=== PATIENT | female | born 1940 | race Two or more races ===

== ENCOUNTER 2021-02-16 02:48 | Inpatient (IN) | payer BC, MEDICARE ==
[~2021-02-16] VITALS: Ht 142.2 cm; Wt 69.2 kg
[2021-02-16] MEDS ORDERED: ONDANSETRON HCL 4 MG/2 ML VIAL ONE (07:36)
[2021-02-16] MEDS ORDERED: ONDANSETRON HCL 4 MG/2 ML VIAL IV ONE ×2 (07:45→12:15)
[2021-02-16] MEDS ORDERED: PANTOPRAZOLE 40mg/50ML NS AE 50 ML IV ONE (07:45)
[2021-02-16] MEDS ORDERED: SODIUM CHLORIDE 0.9% 1,000 ML IV ONE (07:45)
[2021-02-16 07:46] LABS: Basophils # (auto) 0 10 ^3/uL (0-0.2); Basophils % (auto) 0.3 % (0.0-2.0); Eosinophils # (auto) 0 10 ^3/uL (0-0.8); Eosinophils % (auto) 0.1 % (0.0-7.0); Lymphocytes # (auto) 1.3 10 ^3/uL (0.4-5.4); Monocytes # (auto) 0.6 10 ^3/uL (0-1.3); Nucleated Red Blood Cells % 0.1 %
[2021-02-16 07:48] LABS: Hematocrit 14.5 % (36.0-46.0); Lymphocytes % (auto) 16.8 % (10.0-50.0); Mean Corpuscular Hemoglobin 23.1 pg (28.0-32.0); Mean Corpuscular Hgb Conc. 31.9 g/dL (32.0-36.0); Mean Corpuscular Volume 72.4 fL (80.0-100.0); Monocytes % (auto) 7.7 % (0.0-12.0); Neutrophils # (auto) 5.8 10 ^3/uL (1.6-8.6); Neutrophils % (auto) 75.1 % (37.0-80.0); Red Blood Cells 2.01 10^6/uL (4.0-5.20); Red Cell Distribution Width 19.7 % (11.8-14.3); White Blood Cell 7.7 10^3/uL (4.4-10.8)
[2021-02-16 07:55] LABS: Hemoglobin 4.6 g/dL (12.2-16.2)
[2021-02-16 08:02] LABS: Albumin 1.7 g/dL (3.4-5.0); BUN/Creatinine Ratio 38.2; Calcium 6.9 mg/dL (8.5-10.1); Potassium 3.7 mmol/L (3.5-5.1)
[2021-02-16 08:05] LABS: Lactic Acid w/Reflex 7.3 mmol/L (0.4-2.0)
[2021-02-16 08:07] LABS: Bilirubin, Total 0.6 mg/dL (0.2-1.0); Total Protein 5.2 g/dL (6.4-8.2)
[2021-02-16 10:25] VITALS: BP 98/38
[2021-02-16 10:40] VITALS: BP 109/44
[2021-02-16 12:30] VITALS: BP 106/50
[2021-02-16 12:53] VITALS: BP 112/45
[2021-02-16] MEDS ORDERED: NITROGLYCERIN 0.4 MG SL TAB SL PRN (13:00)
[2021-02-16] MEDS ORDERED: MORPHINE SULFATE INJECTION 2 MG/ML SYRG IV PRN ×3 (13:00→13:45)
[2021-02-16 13:08] VITALS: BP 129/51
[2021-02-16] MEDS ORDERED: OCTREOTIDE ACETATE 100 MCG in SODIUM CHL 0.9% 50 ML IV ONE (13:15)
[2021-02-16] MEDS: OCTREOTIDE ACETATE 500 MCG in SODIUM CHL 0.9% 99 ML IV SCH ×2 (13:44→22:38)
[2021-02-16] MEDS ORDERED: ONDANSETRON HCL 4 MG/2 ML VIAL IV PRN (13:45)
[2021-02-16] MEDS ORDERED: DEXTROSE (50%) 50ML SYRG IV PRN (13:45)
[2021-02-16] MEDS ORDERED: levoFLOXacin 500MG 100 ML IV ONE (13:45)
[2021-02-16 14:12] LABS: Amylase 53 U/L (25-115); Lipase 177 U/L (73-393)
[2021-02-16] MEDS: SODIUM CHLORIDE 0.9% 1,000 ML IV SCH ×2 (14:17→22:30)
[2021-02-16] MEDS: metroNIDAZOLE 500MG/100ML 100 ML IV SCH ×2 (14:17→22:30)
[2021-02-16 14:30] VITALS: BP 113/45
[2021-02-16 15:57] LABS: INR 1.87 (0.9-1.15); Partial Thromboplastin Time 35.7 sec (23.6-33.0)
[2021-02-16 16:42] LABS: Hematocrit 22.5 % (36.0-46.0); Hemoglobin 7.3 g/dL (12.2-16.2)
[2021-02-16 16:46] LABS: Urine Bacteria MANY /hpf (None Seen); Urine Blood Negative /uL (Negative); Urine Mucus FEW (None Seen); Urine Specific Gravity 1.014 (1.001-1.035); Urine WBC 5 /hpf (0 - 5)
[2021-02-16] MEDS ORDERED: phytonadione 10 MG in SODIUM CHL 0.9% 50 ML IV ONE (18:00)
[2021-02-16] MEDS: ACCU-CHEK COMFORT CURVE STRIP VI SCH (18:40)
[2021-02-16] MEDS: InsuLIN REG 1unit/0.01ml Soln (100units/ml) SC SCH (18:41)
[2021-02-16] MEDS: PANTOPRAZOLE 40 MG/10 ML VIAL INJ IV SCH (22:29)
[2021-02-16] MEDS: LACTULOSE 20Gm/30ML SOLN PO SCH (22:29)
[2021-02-16] MEDS ORDERED: OCTREOTIDE ACETATE 500 MCG/ML VL ONE (22:34)
[2021-02-16] MEDS: LORazepam 2MG/ML-1ML VIAL IV PRN (22:57)
[2021-02-17] VITALS (22 sets, daily range): BP systolic 11–149; BP diastolic 39–71
[2021-02-17] MEDS: InsuLIN REG 1unit/0.01ml Soln (100units/ml) SC SCH ×5 (00:34→23:44)
[2021-02-17] MEDS: ACCU-CHEK COMFORT CURVE STRIP VI SCH ×5 (00:34→23:43)
[2021-02-17 01:15] LABS: Hematocrit 18.3 % (36.0-46.0)
[2021-02-17 01:18] LABS: Hemoglobin 6.1 g/dL (12.2-16.2)
[2021-02-17] MEDS: LORazepam 2MG/ML-1ML VIAL IV PRN (05:12)
[2021-02-17] MEDS: SODIUM CHLORIDE 0.9% 1,000 ML IV SCH (05:46)
[2021-02-17] MEDS: LACTULOSE 20Gm/30ML SOLN PO SCH (06:04)
[2021-02-17] MEDS: metroNIDAZOLE 500MG/100ML 100 ML IV SCH ×3 (06:04→22:00)
[2021-02-17 07:11] LABS: Basophils # (auto) 0 10 ^3/uL (0-0.2); Basophils % (auto) 0.3 % (0.0-2.0); Eosinophils # (auto) 0 10 ^3/uL (0-0.8); Monocytes # (auto) 1.3 10 ^3/uL (0-1.3); Nucleated Red Blood Cells % 0.1 %
[2021-02-17 07:14] LABS: Hematocrit 15.7 % (36.0-46.0); Lymphocytes # (auto) 1.2 10 ^3/uL (0.4-5.4); Lymphocytes % (auto) 9.2 % (10.0-50.0); Mean Corpuscular Hemoglobin 27.8 pg (28.0-32.0); Mean Corpuscular Hgb Conc. 33.9 g/dL (32.0-36.0); Mean Corpuscular Volume 82.1 fL (80.0-100.0); Monocytes % (auto) 10.3 % (0.0-12.0); Neutrophils # (auto) 10.3 10 ^3/uL (1.6-8.6); Neutrophils % (auto) 80.2 % (37.0-80.0); Red Blood Cells 1.91 10^6/uL (4.0-5.20); White Blood Cell 12.9 10^3/uL (4.4-10.8)
[2021-02-17 07:25] LABS: Albumin 1.6 g/dL (3.4-5.0); Calcium 6.5 mg/dL (8.5-10.1)
[2021-02-17 07:28] LABS: BUN/Creatinine Ratio 52.9; Bilirubin, Total 0.8 mg/dL (0.2-1.0); Total Protein 4.6 g/dL (6.4-8.2)
[2021-02-17 07:31] LABS: Red Cell Distribution Width 20.3 % (11.8-14.3)
[2021-02-17 07:33] LABS: Hemoglobin 5.3 g/dL (12.2-16.2)
[2021-02-17] MEDS: OCTREOTIDE ACETATE 500 MCG in SODIUM CHL 0.9% 99 ML IV SCH (08:56)
[2021-02-17] MEDS: PANTOPRAZOLE 40 MG/10 ML VIAL INJ IV SCH ×2 (09:06→22:46)
[2021-02-17] MEDS ORDERED: levoFLOXacin 500MG 100 ML IV SCH (10:00)
[2021-02-17] MEDS ORDERED: levoFLOXacin 250MG 50 ML IV SCH (10:00)
[2021-02-17] MEDS ORDERED: SODIUM CHLORIDE LOCK 10 ML ONE (13:27)
[2021-02-17] MEDS ORDERED: LIDOCAINE VISCOUS 2% 15ML UD ONE (13:27)
[2021-02-17] MEDS ORDERED: diphenhdrAMINE HCL 50 MG/1 ML VL ONE (13:28)
[2021-02-17 14:40] LABS: Hematocrit 24.3 % (36.0-46.0); Hemoglobin 7.9 g/dL (12.2-16.2)
[2021-02-17 15:42] LABS: Alcohol, Urine < 3.0 mg/dL (0-10); Amphetamine Screen, Urine NEGATIVE (NEGATIVE); Barbiturate Scree,Urine NEGATIVE (NEGATIVE); Benzodiazephine Screen, Urine NEGATIVE (NEGATIVE); Cannabinoid Screen, Urine NEGATIVE (NEGATIVE); Cocaine Screen, Urine NEGATIVE (NEGATIVE); Opiate Scree,Urine NEGATIVE (NEGATIVE); Phencyclidine Screen, Urine NEGATIVE (NEGATIVE)
[2021-02-17 16:00] LABS: INR 1.46 (0.9-1.15)
[2021-02-17] MEDS: fentaNYL CITRATE 100 MCG/2 ML VL ONE ×2 (17:17→17:25)
[2021-02-17] MEDS: MIDAZOLAM HCL 5 MG/ML-1ML VIAL ONE ×2 (17:17→17:25)
[2021-02-17] MEDS: SOD CHL 0.45% 1,000 ML IV SCH (18:00)
[2021-02-17 18:53] LABS: Hemoglobin 8.4 g/dL (12.2-16.2)
[2021-02-17 19:19] LABS: Hematocrit 24.4 % (36.0-46.0)
[2021-02-17] MEDS: LACTULOSE 10g/15ml SOLN PR SCH (20:20)
[2021-02-18] MEDS: LACTULOSE 10g/15ml SOLN PR SCH ×4 (00:40→18:35)
[2021-02-18] MEDS: OCTREOTIDE ACETATE 500 MCG in SODIUM CHL 0.9% 99 ML IV SCH ×3 (01:04→16:18)
[2021-02-18 01:25] LABS: Hematocrit 26.4 % (36.0-46.0)
[2021-02-18] MEDS: metroNIDAZOLE 500MG/100ML 100 ML IV SCH (05:19)
[2021-02-18] MEDS: ACCU-CHEK COMFORT CURVE STRIP VI SCH ×3 (06:00→18:35)
[2021-02-18] MEDS: InsuLIN REG 1unit/0.01ml Soln (100units/ml) SC SCH ×3 (06:00→18:37)
[2021-02-18] MEDS: SOD CHL 0.45% 1,000 ML IV SCH (08:00)
[2021-02-18] MEDS ORDERED: FUROSEMIDE 40 MG/4 ML VIAL IV ONE (09:30)
[2021-02-18 10:40] VITALS: BP 116/55
[2021-02-18 12:24] LABS: Basophils # (auto) 0 10 ^3/uL (0-0.2); Basophils % (auto) 0.2 % (0.0-2.0); Eosinophils # (auto) 0.1 10 ^3/uL (0-0.8); Eosinophils % (auto) 1.2 % (0.0-7.0); Hemoglobin 8.6 g/dL (12.2-16.2); Lymphocytes # (auto) 0.7 10 ^3/uL (0.4-5.4); Lymphocytes % (auto) 10.8 % (10.0-50.0); Mean Corpuscular Hemoglobin 29.8 pg (28.0-32.0); Mean Corpuscular Hgb Conc. 34.2 g/dL (32.0-36.0); Monocytes # (auto) 0.5 10 ^3/uL (0-1.3); Monocytes % (auto) 7.7 % (0.0-12.0); Neutrophils # (auto) 5.5 10 ^3/uL (1.6-8.6); Neutrophils % (auto) 80.1 % (37.0-80.0); Nucleated Red Blood Cells % 0.3 %; Red Blood Cells 2.88 10^6/uL (4.0-5.20); Red Cell Distribution Width 18.6 % (11.8-14.3); White Blood Cell 6.9 10^3/uL (4.4-10.8)
[2021-02-18 12:31] LABS: Albumin 1.9 g/dL (3.4-5.0); Calcium 7.1 mg/dL (8.5-10.1); Potassium 3.4 mmol/L (3.5-5.1)
[2021-02-18 12:35] LABS: BUN/Creatinine Ratio 56.6; Total Protein 5.2 g/dL (6.4-8.2)
[2021-02-18 13:00] VITALS: BP 119/50
[2021-02-18] MEDS: PANTOPRAZOLE 40 MG/10 ML VIAL INJ IV SCH ×2 (13:34→22:31)
[2021-02-18] MEDS: POTASSIUM CHLORIDE 20 MEQ in D5W 5% 1,000 ML IV SCH (16:18)
[2021-02-18 17:00] VITALS: BP 116/55
[2021-02-18 22:00] VITALS: BP 124/57
[2021-02-19] MEDS: LACTULOSE 10g/15ml SOLN PR SCH ×2 (00:58→07:36)
[2021-02-19] MEDS: OCTREOTIDE ACETATE 500 MCG in SODIUM CHL 0.9% 99 ML IV SCH (02:30)
[2021-02-19] MEDS ORDERED: GABA-339 PO (02:52)
[2021-02-19] MEDS ORDERED: PRE1T PO (02:52)
[2021-02-19] MEDS ORDERED: BACL10TA PO (02:52)
[2021-02-19] MEDS ORDERED: HYDR200T36 PO (02:52)
[2021-02-19] MEDS ORDERED: FOLI1TAB6 PO (02:52)
[2021-02-19] MEDS ORDERED: METH2.5T PO (02:52)
[2021-02-19] MEDS: POTASSIUM CHLORIDE 20 MEQ in D5W 5% 1,000 ML IV SCH (03:13)
[2021-02-19 05:00] VITALS: BP 107/54
[2021-02-19] MEDS: ACCU-CHEK COMFORT CURVE STRIP VI SCH ×5 (06:00→23:46)
[2021-02-19] MEDS: InsuLIN REG 1unit/0.01ml Soln (100units/ml) SC SCH ×5 (06:00→23:48)
[2021-02-19 06:58] LABS: Basophils # (auto) 0.1 10 ^3/uL (0-0.2); Basophils % (auto) 1.2 % (0.0-2.0); Eosinophils # (auto) 0.3 10 ^3/uL (0-0.8); Eosinophils % (auto) 4.9 % (0.0-7.0); Hematocrit 25.3 % (36.0-46.0); Hemoglobin 8.6 g/dL (12.2-16.2); Lymphocytes # (auto) 0.7 10 ^3/uL (0.4-5.4); Lymphocytes % (auto) 12.9 % (10.0-50.0); Mean Corpuscular Hemoglobin 29.2 pg (28.0-32.0); Mean Corpuscular Hgb Conc. 34.1 g/dL (32.0-36.0); Mean Corpuscular Volume 85.7 fL (80.0-100.0); Monocytes # (auto) 0.5 10 ^3/uL (0-1.3); Monocytes % (auto) 8.5 % (0.0-12.0); Neutrophils # (auto) 3.9 10 ^3/uL (1.6-8.6); Neutrophils % (auto) 72.5 % (37.0-80.0); Nucleated Red Blood Cells % 0.2 %; Red Blood Cells 2.95 10^6/uL (4.0-5.20); Red Cell Distribution Width 18.7 % (11.8-14.3); White Blood Cell 5.4 10^3/uL (4.4-10.8)
[2021-02-19 07:25] LABS: Potassium 3.3 mmol/L (3.5-5.1)
[2021-02-19 07:39] LABS: Calcium 6.9 mg/dL (8.5-10.1)
[2021-02-19] MEDS: cefTRIAXone 1GM/50ML D5W 50 ML IV SCH (08:53)
[2021-02-19 09:00] VITALS: BP 124/52
[2021-02-19] MEDS ORDERED: POTASSIUM EFFERVESENT TAB 25 MEQ PO ONE (09:45)
[2021-02-19] MEDS ORDERED: POTASSIUM CHLORIDE 20 MEQ in D5W 5% 1,000 ML IV SCH (09:45)
[2021-02-19] MEDS: PANTOPRAZOLE 40 MG/10 ML VIAL INJ IV SCH ×2 (10:14→21:21)
[2021-02-19] MEDS: LACTULOSE 20Gm/30ML SOLN PO SCH ×2 (10:48→21:21)
[2021-02-19] MEDS ORDERED: GADOTERATE MEG 7.5 MMOL/15ml INJ (0.5MMOL/ml) IV ONE (12:02)
[2021-02-19 13:00] VITALS: BP 132/60
[2021-02-19 17:00] VITALS: BP 120/60
[2021-02-19] MEDS: Glucerna Carbsteady SHAKE Vanilla 8oz PO SCH (18:41)
[2021-02-19 22:00] VITALS: BP 118/58
[2021-02-20 05:00] VITALS: BP 118/57
[2021-02-20] MEDS: InsuLIN REG 1unit/0.01ml Soln (100units/ml) SC SCH ×3 (05:32→17:56)
[2021-02-20] MEDS: ACCU-CHEK COMFORT CURVE STRIP VI SCH ×3 (05:33→17:54)
[2021-02-20 06:29] LABS: Basophils # (auto) 0 10 ^3/uL (0-0.2); Basophils % (auto) 0.8 % (0.0-2.0); Eosinophils # (auto) 0.4 10 ^3/uL (0-0.8); Eosinophils % (auto) 8.2 % (0.0-7.0); Hematocrit 25.7 % (36.0-46.0); Hemoglobin 8.7 g/dL (12.2-16.2); Lymphocytes # (auto) 0.8 10 ^3/uL (0.4-5.4); Lymphocytes % (auto) 14.7 % (10.0-50.0); Mean Corpuscular Hemoglobin 29.2 pg (28.0-32.0); Mean Corpuscular Hgb Conc. 33.9 g/dL (32.0-36.0); Mean Corpuscular Volume 86.2 fL (80.0-100.0); Monocytes # (auto) 0.5 10 ^3/uL (0-1.3); Monocytes % (auto) 9.4 % (0.0-12.0); Neutrophils # (auto) 3.6 10 ^3/uL (1.6-8.6); Neutrophils % (auto) 66.9 % (37.0-80.0); Nucleated Red Blood Cells % 0.3 %; Red Blood Cells 2.98 10^6/uL (4.0-5.20); Red Cell Distribution Width 19.2 % (11.8-14.3); White Blood Cell 5.4 10^3/uL (4.4-10.8)
[2021-02-20 07:01] LABS: Potassium 3.4 mmol/L (3.5-5.1)
[2021-02-20 07:07] LABS: BUN/Creatinine Ratio 41.7; Calcium 7.3 mg/dL (8.5-10.1)
[2021-02-20 09:00] VITALS: BP 119/56
[2021-02-20] MEDS: Glucerna Carbsteady SHAKE Vanilla 8oz PO SCH ×2 (09:14→17:54)
[2021-02-20] MEDS: cefTRIAXone 1GM/50ML D5W 50 ML IV SCH (09:14)
[2021-02-20] MEDS: PANTOPRAZOLE 40 MG/10 ML VIAL INJ IV SCH (10:30)
[2021-02-20] MEDS: LACTULOSE 20Gm/30ML SOLN PO SCH ×2 (10:30→21:44)
[2021-02-20] MEDS: SPIRONOLACTONE 25 MG TAB PO SCH (10:30)
[2021-02-20] MEDS ORDERED: POTASSIUM CHL 10 Meq TABLET PO ONE (12:30)
[2021-02-20 13:00] VITALS: BP 106/72
[2021-02-20 16:39] VITALS: BP 140/48
[2021-02-20] MEDS: PANTOPRAZOLE 40 MG TAB PO SCH (21:44)
[2021-02-20 22:00] VITALS: BP 110/57
[2021-02-21] MEDS: InsuLIN REG 1unit/0.01ml Soln (100units/ml) SC SCH ×4 (00:44→17:57)
[2021-02-21] MEDS: ACCU-CHEK COMFORT CURVE STRIP VI SCH ×4 (00:45→17:57)
[2021-02-21 05:00] VITALS: BP 108/41
[2021-02-21 05:56] LABS: Basophils # (auto) 0 10 ^3/uL (0-0.2); Basophils % (auto) 0.6 % (0.0-2.0); Eosinophils # (auto) 0.3 10 ^3/uL (0-0.8); Eosinophils % (auto) 6.5 % (0.0-7.0); Hematocrit 27.9 % (36.0-46.0); Hemoglobin 9.4 g/dL (12.2-16.2); Lymphocytes # (auto) 0.6 10 ^3/uL (0.4-5.4); Mean Corpuscular Hemoglobin 28.7 pg (28.0-32.0); Mean Corpuscular Hgb Conc. 33.7 g/dL (32.0-36.0); Monocytes # (auto) 0.5 10 ^3/uL (0-1.3); Monocytes % (auto) 10.2 % (0.0-12.0); Neutrophils # (auto) 3.8 10 ^3/uL (1.6-8.6); Neutrophils % (auto) 70.7 % (37.0-80.0); Nucleated Red Blood Cells % 0.3 %; Red Blood Cells 3.28 10^6/uL (4.0-5.20); Red Cell Distribution Width 19.8 % (11.8-14.3); White Blood Cell 5.4 10^3/uL (4.4-10.8)
[2021-02-21 06:09] LABS: BUN/Creatinine Ratio 32.6; Calcium 7.5 mg/dL (8.5-10.1); Potassium 3.1 mmol/L (3.5-5.1)
[2021-02-21 09:00] VITALS: BP 154/91
[2021-02-21] MEDS ORDERED: POTASSIUM EFFERVESENT TAB 25 MEQ GT ONE (10:00)
[2021-02-21] MEDS: Glucerna Carbsteady SHAKE Vanilla 8oz PO SCH ×2 (10:10→17:57)
[2021-02-21] MEDS: cefTRIAXone 1GM/50ML D5W 50 ML IV SCH (10:11)
[2021-02-21] MEDS: SPIRONOLACTONE 25 MG TAB PO SCH (10:11)
[2021-02-21] MEDS: LACTULOSE 20Gm/30ML SOLN PO SCH ×2 (10:11→21:40)
[2021-02-21] MEDS: PANTOPRAZOLE 40 MG TAB PO SCH ×2 (10:11→21:40)
[2021-02-21 13:15] VITALS: BP 121/64
[2021-02-21 17:10] VITALS: BP 136/59
[2021-02-21 22:00] VITALS: BP 126/66
[2021-02-22] MEDS: InsuLIN REG 1unit/0.01ml Soln (100units/ml) SC SCH ×4 (00:27→17:19)
[2021-02-22] MEDS: ACCU-CHEK COMFORT CURVE STRIP VI SCH ×5 (00:28→23:56)
[2021-02-22 05:00] VITALS: BP 100/48
[2021-02-22 08:22] LABS: Basophils # (auto) 0 10 ^3/uL (0-0.2); Basophils % (auto) 0.8 % (0.0-2.0); Eosinophils # (auto) 0.3 10 ^3/uL (0-0.8); Eosinophils % (auto) 6.3 % (0.0-7.0); Hematocrit 28.4 % (36.0-46.0); Hemoglobin 9.3 g/dL (12.2-16.2); Lymphocytes # (auto) 0.8 10 ^3/uL (0.4-5.4); Lymphocytes % (auto) 16.3 % (10.0-50.0); Mean Corpuscular Hemoglobin 28.1 pg (28.0-32.0); Mean Corpuscular Hgb Conc. 32.8 g/dL (32.0-36.0); Mean Corpuscular Volume 85.8 fL (80.0-100.0); Monocytes # (auto) 0.5 10 ^3/uL (0-1.3); Monocytes % (auto) 11.6 % (0.0-12.0); Neutrophils # (auto) 3.1 10 ^3/uL (1.6-8.6); Nucleated Red Blood Cells % 0.1 %; Red Blood Cells 3.31 10^6/uL (4.0-5.20); Red Cell Distribution Width 20.1 % (11.8-14.3); White Blood Cell 4.7 10^3/uL (4.4-10.8)
[2021-02-22 08:24] LABS: Calcium 7.4 mg/dL (8.5-10.1); Potassium 3.6 mmol/L (3.5-5.1)
[2021-02-22 08:57] VITALS: BP 116/65
[2021-02-22] MEDS: LACTULOSE 20Gm/30ML SOLN PO SCH ×2 (09:42→22:00)
[2021-02-22] MEDS: Glucerna Carbsteady SHAKE Vanilla 8oz PO SCH ×2 (09:42→17:18)
[2021-02-22] MEDS: cefTRIAXone 1GM/50ML D5W 50 ML IV SCH (09:42)
[2021-02-22] MEDS: PANTOPRAZOLE 40 MG TAB PO SCH ×2 (09:43→22:00)
[2021-02-22] MEDS: SPIRONOLACTONE 25 MG TAB PO SCH (09:43)
[2021-02-22 12:57] VITALS: BP 112/83
[2021-02-22] MEDS: rifAXIMin 550 MG TAB PO SCH ×2 (14:53→22:00)
[2021-02-22 17:13] VITALS: BP 130/93
[2021-02-22 22:00] VITALS: BP 120/70
[2021-02-23] MEDS: InsuLIN REG 1unit/0.01ml Soln (100units/ml) SC SCH ×5 (00:17→17:39)
[2021-02-23 05:00] VITALS: BP 129/58
[2021-02-23 05:54] LABS: Basophils # (auto) 0 10 ^3/uL (0-0.2); Basophils % (auto) 0.6 % (0.0-2.0); Eosinophils # (auto) 0.4 10 ^3/uL (0-0.8); Eosinophils % (auto) 6.3 % (0.0-7.0); Hematocrit 26.1 % (36.0-46.0); Hemoglobin 8.8 g/dL (12.2-16.2); Lymphocytes # (auto) 0.9 10 ^3/uL (0.4-5.4); Lymphocytes % (auto) 16.1 % (10.0-50.0); Mean Corpuscular Hemoglobin 28.8 pg (28.0-32.0); Mean Corpuscular Hgb Conc. 33.8 g/dL (32.0-36.0); Mean Corpuscular Volume 85.3 fL (80.0-100.0); Monocytes # (auto) 0.8 10 ^3/uL (0-1.3); Neutrophils # (auto) 3.7 10 ^3/uL (1.6-8.6); Nucleated Red Blood Cells % 0.2 %; Red Blood Cells 3.06 10^6/uL (4.0-5.20); White Blood Cell 5.8 10^3/uL (4.4-10.8)
[2021-02-23] MEDS: ACCU-CHEK COMFORT CURVE STRIP VI SCH ×3 (06:00→17:40)
[2021-02-23 06:05] LABS: BUN/Creatinine Ratio 33.3; Calcium 7.7 mg/dL (8.5-10.1); Potassium 3.8 mmol/L (3.5-5.1)
[2021-02-23 06:13] LABS: Red Cell Distribution Width 20.7 % (11.8-14.3)
[2021-02-23] MEDS: Glucerna Carbsteady SHAKE Vanilla 8oz PO SCH (08:30)
[2021-02-23 09:00] VITALS: BP 112/66
[2021-02-23] MEDS: cefTRIAXone 1GM/50ML D5W 50 ML IV SCH (09:20)
[2021-02-23] MEDS: PANTOPRAZOLE 40 MG TAB PO SCH (09:24)
[2021-02-23] MEDS: rifAXIMin 550 MG TAB PO SCH (09:24)
[2021-02-23] MEDS: LACTULOSE 20Gm/30ML SOLN PO SCH (09:24)
[2021-02-23] MEDS: SPIRONOLACTONE 25 MG TAB PO SCH (09:24)
[2021-02-23 10:05] LABS: Hepatitis B Surface Antibody Negative
[2021-02-23 10:37] LABS: Hepatitis A Total Antibody Negative
[2021-02-23 11:13] LABS: INR 1.44 (0.9-1.15); Partial Thromboplastin Time 26.8 sec (23.6-33.0)
[2021-02-23] MEDS ORDERED: ALBUMIN 25% 100 ML IV ONE (11:45)
[2021-02-23] MEDS ORDERED: SPIR50TA5 PO (11:45)
[2021-02-23] MEDS ORDERED: LACT10SO3 PO (11:45)
[2021-02-23] MEDS ORDERED: PANT40T PO (11:45)
[2021-02-23] MEDS ORDERED: RIFA550T PO (11:45)
[2021-02-23] MEDS ORDERED: FER325T PO (12:26)
[2021-02-23] MEDS ORDERED: FUROSEMIDE 20 MG/2 ML VIAL IV ONE (12:30)
[2021-02-23 13:50] LABS: Hepatitis B Core Total AB Negative; Hepatitis B Surface Antigen Negative (Negative)
[2021-02-23 13:52] LABS: Hepatitis C Antibody Positive (Negative)
[2021-02-23 17:00] VITALS: BP 116/45
== END 2021-02-23 18:33 | disposition home health service (06) | DRG 432 ==
LOC: EDBD 02:48 → ER 02:48 → TELE 12:47 → TELE-CENTR 02-18 10:31
PROVIDERS: ADMIT Internal Medicine; ATTEND Internal Medicine
PROC: 30233N1 Transfusion of Nonautologous Red Blood Cells into Peripheral Vein, Percutaneous Approach (ICD-10-PCS; 2021-02-16)
PROC: 05HD33Z Insertion of Infusion Device into Right Cephalic Vein, Percutaneous Approach (ICD-10-PCS; 2021-02-16)
PROC: B54MZZA Ultrasonography of Right Upper Extremity Veins, Guidance (ICD-10-PCS; 2021-02-16)
PROC: 30233K1 Transfusion of Nonautologous Frozen Plasma into Peripheral Vein, Percutaneous Approach (ICD-10-PCS; 2021-02-17)
PROC: 06L38CZ Occlusion of Esophageal Vein with Extraluminal Device, Via Natural or Artificial Opening Endoscopic (ICD-10-PCS; principal; 2021-02-17 11:15)
PROC: 0W9G3ZZ Drainage of Peritoneal Cavity, Percutaneous Approach (ICD-10-PCS; 2021-02-23)
DX: K70.31 Alcoholic cirrhosis of liver with ascites (principal); I21.A1 Myocardial infarction type 2; E43 Unspecified severe protein-calorie malnutrition; I85.11 Secondary esophageal varices with bleeding; K92.2 Gastrointestinal hemorrhage, unspecified; D62 Acute posthemorrhagic anemia; K76.6 Portal hypertension; D68.9 Coagulation defect, unspecified; K72.90 Hepatic failure, unspecified without coma; E78.5 Hyperlipidemia, unspecified; I10 Essential (primary) hypertension; R77.8 Other specified abnormalities of plasma proteins; Z20.822 Contact with and (suspected) exposure to COVID-19; R16.0 Hepatomegaly, not elsewhere classified; K31.89 Other diseases of stomach and duodenum; B19.20 Unspecified viral hepatitis C without hepatic coma; D69.6 Thrombocytopenia, unspecified; R79.89 Other specified abnormal findings of blood chemistry; Z87.442 Personal history of urinary calculi; Z90.710 Acquired absence of both cervix and uterus; Z88.0 Allergy status to penicillin; Z68.28 Body mass index [BMI] 28.0-28.9, adult
CPT/HCPCS: 36415; 49083; 51702; 70450; 71045; 72125; 74176; 74183; 76700; 76705; 76942; 80048; 80053; 80307; 81001; 82105; 82140; 82150; 82962; 83036; 83605; 83690; 84484; 85014; 85018; 85025; 85045; 85610; 85730; 86704; 86706; 86708; 86803; 86850; 86900; 86901; 86920; 87086; 87340; 87426; 93005; 93306; 96365; 96366; 96367; 96368; 96372; 96375; 96376; 97163; 99291; C9113; G0378; J0696; J1815; J1956; J2250; J2405; J3430; J3490; P9047